=== PATIENT | female | born 1960 | race Caucasian/White ===

== ENCOUNTER 2018-08-19 00:56 | Emergency (ER) | payer SELFPAY ==
[2018-08-19 01:49] LABS: #Eosinphils 0.2 thou/uL (0.0-0.7); #Lymphocytes 1.5 thou/uL (1.20-3.40); #Monocytes 0.3 thou/uL (0.11-0.59); #Neutrophils 6.9 thou/uL (1.40-6.50); %Basophils 0.4 % (0.0-1.0); %Eosinophils 2.4 % (0.0-10.0); %Lymphocytes 16.5 % (21.0-51.0); %Monocytes 2.9 % (0.0-10.0); %Neutrophils 77.9 % (42.0-75.0); Mean Corpuscular HGB CONC 33.5 g/dL (32.0-36.0); Mean Corpuscular Hemoglobin 33.3 pg (27.0-31.0); Mean Corpuscular Volume 99.5 fL (78.0-98.0); Mean Platelet Volume 8.9 fL (7.4-10.4); Platelet Count 212 thou/uL (130-400); RBC Distribution Width 11.6 % (11.5-14.5); White Blood Cell (WBC) Count 8.9 thou/uL (4.8-10.8)
[2018-08-19 02:15] LABS: ALT (SGPT) 9 U/L (8-55); AST (SGOT) 16 U/L (5-34); Albumin 3.6 g/dL (3.5-5.0); Alkaline Phosphatase 39 U/L (40-150); Anion Gap 9 mmol/L (10-20); BUN (Urea Nitrogen) 21 mg/dL (9.8-20.1); Bilirubin, Total 0.3 mg/dL (0.2-1.2); Calc. Creatinine Clearance 0 mL/min (70-130); Calcium 8.4 mg/dL (7.8-10.44); Carbon Dioxide 23 mmol/L (22-29); Chloride 114 mmol/L (98-107); Estimated GFR-MDRD 72; Globulin 2.6 g/dL (2.4-3.5); Glucose 98 mg/dL (70-105); Potassium 4.1 mmol/L (3.5-5.1); Protein, Total 6.2 g/dL (6.0-8.3); Sodium 142 mmol/L (136-145)
[2018-08-19] MEDS ORDERED: Meclizine HCl 25 MG TAB ONE (02:26)
[2018-08-19] MEDS ORDERED: Ondansetron ODT 4 MG TAB ONE (03:35)
--- NOTE | 2018-08-19 12:18 | CT ---
PRELIMINARY REPORT/[facility]/EMERGENCY AFTER HOURS PROCEDURE: EXAM: CT Head Without Contrast EXAM DATE/TIME: 08/19/2018 1:31 AM CLINICAL HISTORY: 58 years old, female; Injury or trauma; Fall; Initial encounter; Blunt trauma (contusions or hematoma s); Consciousness not specified; Patient HX: Picked up from hotel. Was on 10 hr flight from [place] today. Accidently took parkinsons med 2 hours ago. Passed out twice hit head. Abrasion noted to RT eyebrow. Medication taken repeinerol. TECHNIQUE: Axial computed tomography images of the head/brain without contrast. COMPARISON: No relevant prior studies available. FINDINGS: Brain: Normal. No hemorrhage. No significant white matter disease. No edema. Ventricles: Normal. No ventriculomegaly. Bones/joints: Normal. No acute fracture. Sinuses: Normal as visualized. No acute sinusitis. Mastoid air cells: Normal as visualized. No mastoid effusion. Soft tissues: Normal. IMPRESSION: No acute intracranial hemorrhage. Thank you for allowing us to participate in the care of your patient. Dictated and Authenticated by: Alvaro Sherman MD 08/19/2018 1:47 AM Central Time ([place] & [place]) FINAL REPORT EMERGENT AFTER HOURS CT BRAIN: IMPRESSION: Agree with the preliminary interpretation given by [facility]. POS: [facility]
--- NOTE | 2018-08-22 15:01 | EKG ---
Test Reason : Blood Pressure : / mmHG Vent. Rate : 063 BPM Atrial Rate : 063 BPM P-R Int : 144 ms QRS Dur : 086 ms QT Int : 446 ms P-R-T Axes : 072 064 059 degrees QTc Int : 456 ms Sinus rhythm with Premature atrial complexes with Abberant conduction Possible Left atrial enlargement Borderline ECG Confirmed by BRUNILDA MALAVE M.D. ([id number]), movie editor [place] ([id number]) on 08/22/2018 3:01:19 PM Referred By: Confirmed By:BRUNILDA MALAVE M.D.
== END 2018-08-19 03:31 | disposition home or self-care (01) ==
LOC: ERS 00:56
DX: R55 Syncope and collapse (principal)
CPT/HCPCS: 70450; 80053; 84484; 85025; 85379; 93005; Q0162